=== PATIENT | female | born 1990 | race African-American/Black ===

== ENCOUNTER 2017-07-30 10:01 | Emergency (ER) | payer MEDICAID ==
[~2017-07-30] VITALS: Ht 157.5 cm; Wt 87.0 kg
[~2017-07-30 10:01] MED LIST: PREN1TAB30 PO; ZOFR4TAB3 SL
[2017-07-30 10:02] VITALS: BP 130/70; PULSE 87; RESP 16; TEMP 98.6; O2SAT 99
[2017-07-30 10:50] VITALS: BP 120/57; PULSE 76; RESP 19; TEMP 98.3; O2SAT 99
--- NOTE | 2017-07-30 11:29 | PD ---
HPI Chief Complaint: Abdominal Pain Time Seen by Provider: 11:17 Travel History International Travel<30 days: No Contact w/Intl Traveler<30days: No Traveled to known affect area: No History of Present Illness HPI The patient was seen and examined in the presence of the nurse. This patient complains of pelvic cramping. Location is suprapubic. No nausea or vomiting or fever. She is eating fine. Duration 3 days. She felt like she does when she gets a menstrual period but did not hit any blood flow. Denies discharge. She had a delivery of her child 9 months ago. Severity is mild to moderate. No alleviating factors. No exacerbating factors PFSH Past Medical History Medical History: Denies Significant Hx Diminished Hearing: No Immunizations Current: Yes Influenza Vaccination: No ?: Unknown LMP: JUNE 2017 Past Surgical History Other Surgery: Yes ([place]cl[place] ) Social History Alcohol Use: No Tobacco Use: Yes (1/2 PPD) Substance Use: Yes (Marijuana daily ) Allergies-Medications (Allergen,Severity, Reaction): Coded Allergies: clindamycin (Unverified Allergy, Severe, Hives, 07/30/17) penicillin G (Unverified Allergy, Severe, Hives, 07/30/17) A CHILD HAD A REACTION Uncoded Allergies: hair dye (Allergy, Severe, edema, 07/30/17) Reported Meds & Prescriptions Reported Meds & Active Scripts Active No Active Prescriptions or Reported Medications Review of Systems General / Constitutional: No: Fever Eyes: No: Visual changes HENT: No: Headaches Cardiovascular: No: Chest Pain or Discomfort Respiratory: No: Shortness of Breath Gastrointestinal: Positive: Abdominal Pain Genitourinary: Positive: Pelvic Pain, No: Dysuria Musculoskeletal: No: Pain Skin: No Rash Neurologic: No: Weakness Psychiatric: No: Depression Endocrine: No: Polydipsia Hematologic/Lymphatic: No: Easy Bruising Physical Exam Narrative GENERAL: Well-nourished, well-developed patient in no apparent distress. SKIN: Focused skin assessment reveals no rash and nodules. Skin is Warm and dry. HEAD: Atraumatic. Normocephalic. EYES: Pupils equal and round. No scleral icterus. No injection or drainage. ENT: No nasal bleeding or discharge. Mucous membranes pink and moist. NECK: Trachea midline. No JVD. CARDIOVASCULAR: Regular rate and rhythm. No murmur appreciated. RESPIRATORY: No accessory muscle use. Clear to auscultation. Breath sounds equal bilaterally. GASTROINTESTINAL: Abdomen soft, has some suprapubic tenderness without rebound or guarding , nondistended. Hepatic and splenic margins not palpable. Minimal tenderness in the left or right lower quadrants but definitely worse in the midline MUSCULOSKELETAL: No obvious deformities. No clubbing. No cyanosis. No edema. NEUROLOGICAL: Awake and alert. No obvious cranial nerve deficits. Motor grossly within normal limits. Normal speech. PSYCHIATRIC: Appropriate mood and affect; insight and judgment normal. Pelvic: No cervical motion tenderness. No discharge or bleeding. No adnexal mass or tenderness Data Data Last Documented VS Vital Signs Date Time Temp Pulse Resp B/P (MAP) Pulse Ox O2 Delivery O2 Flow Rate FiO2 07/30/17 12:56 07/30/17 10:50 98.3 76 19 99 Room Air [facility] Medical Decision Making Medical Screen Exam Complete: Yes Emergency Medical Condition: Yes Medical Record Reviewed: Yes Differential Diagnosis Differential diagnosis includes PID, ectopic , ovarian cyst, ovarian torsion, endometriosis. Narrative Course I have reviewed the patient's electronic medical record. Urine is negative Patient's exam is pretty normal and nonspecific. However, she disappeared from the emergency room, presumably snuck out. She did not mention anything to me or the nurse prior to leaving. She has marked AGAINST MEDICAL ADVICE. She did not get any discharge paperwork. Diagnosis Primary Impression: Pelvic cramping Additional Instructions: The patient was advised to follow up with their physician and return if they worsen. Med/Other Pt SpecificInfo: Other Scripts No Active Prescriptions or Reported Meds Disposition: 07 AGAINST MEDICAL ADVICE Guillaume Ibarra MD Jul 30, 2017 11:29
== END 2017-07-30 12:56 | disposition left against medical advice (07) ==
LOC: NEPD 10:01
DX: R10.2 Pelvic and perineal pain (principal); F17.200 Nicotine dependence, unspecified, uncomplicated; Z88.0 Allergy status to penicillin; Z88.1 Allergy status to other antibiotic agents
CPT/HCPCS: 99281